=== PATIENT | female | born 1975 | race Caucasian/White ===

== ENCOUNTER → 2017-04-16 | Outpatient (CLI) | payer OTHER ==
[~2017-04-16] MED LIST: ALBU90OI61; CEPH500 PO; FAMO20 PO; FLUC200 PO; FLUSAL5005 IH; MONT10T PO; OMEP10ER PO; ONDA8 PO; PANT20 PO; RXERYTOPTH OP; SPIR25 PO; SUCR1 PO; SULTRIDS PO; THYR60 PO; THYROID PO; VITAMIN D3 PO; [UNRECOGNIZED DRUG - OTHER]
[2017-04-18 03:15] LABS: Source VAGINAL
== END ==
LOC: LAB 11:04
PROVIDERS: Nurse Practitioner Family
DX: Z01.419 Encounter for gynecological examination (general) (routine) without abnormal findings (principal)
CPT/HCPCS: G0145

== ENCOUNTER 2018-10-15 20:19 | Emergency (ER) | payer BC ==
[~2018-10-15] VITALS: Ht 167.6 cm; Wt 72.6 kg
[~2018-10-15 20:19] MED LIST changes: -ALBU90OI61; +ALBU90OI61 INH
[2018-10-15 20:56] LABS: BASOPHILS ABSOLUTE AUTO 0.05 K/mm3 (0.00-0.23); BASOPHILS PERCENT AUTO 1 % (0-2); EOSINOPHILS ABSOLUTE AUTO 0.14 K/mm3 (0.00-0.68); EOSINOPHILS PERCENT AUTO 2 % (0-6); Hematocrit 39.6 % (33.0-51.0); Hemoglobin 14.3 g/dL (11.5-16.0); IMMATURE GRAN ABSOLUTE AUTO 0.02 K/mm3 (0.00-0.10); IMMATURE GRAN PERCENT AUTO 0 % (0-1); LYMPHOCYTES ABSOLUTE AUTO 1.29 K/mm3 (0.84-5.20); LYMPHOCYTES PERCENT AUTO 15 % (21-46); MONOCYTES ABSOLUTE AUTO 0.41 K/mm3 (0.16-1.47); MONOCYTES PERCENT AUTO 5 % (4-13); Mean Corpuscular HGB 31.2 pg (26.0-34.0); Mean Corpuscular HGB Conc 36.1 g/dL (31.5-36.5); Mean Corpuscular Volume 86 fL (80-100); Mean Platelet Volume 9.3 fL (9.1-12.4); NEUTROPHILS ABSOLUTE AUTO 6.61 K/mm3 (1.96-9.15); NEUTROPHILS PERCENT AUTO 78 % (41-73); Platelet Count 236 K/mm3 (150-400); RDW Coefficient Variation 12.3 % (11.7-14.2); RDW Standard Deviation 38.6 fL (35.1-46.3); Red Blood Cell Count 4.59 M/mm3 (3.80-5.20); White Blood Cell Count 8.52 K/mm3 (4.00-11.30)
[2018-10-15 21:19] LABS: Alanine Aminotransfer (ALT/SGP 68 U/L (12-78); Albumin, Blood 3.9 g/dL (3.4-5.0); Albumin/Globulin Ratio 1.2 (0.8-1.8); Alk Phos 83 U/L (50-136); Anion Gap 7 mmol/L (6-16); Aspartate Aminotrans (AST/SGOT 113 U/L (12-37); Bilirubin, Total 1.7 mg/dL (0.1-1.0); Blood Urea Nitrogen 16 mg/dL (8-24); Bun/Creatinine Ratio 29.8 (12.0-20.0); CO2, Blood 27 mmol/L (21-32); Calcium, Blood 8.8 mg/dL (8.5-10.1); Chloride, Blood 109 mmol/L (98-108); Creatinine, Blood 0.54 mg/dL (0.40-1.00); Globulin, Blood 3.2 g/dL (2.2-4.0); Glomerular Filtration Rate >60 (60-); Glucose, Blood 94 mg/dL (70-99); Potassium, Blood 3.7 mmol/L (3.5-5.5); Sodium, Blood 143 mmol/L (136-145); Total Protein, Blood 7.1 g/dL (6.4-8.2); Troponin I <0.015 ng/mL (0.000-0.040)
[2018-10-16] MEDS ORDERED: MONTELUKAST SOD10 MG PO (00:01)
[2018-10-16] MEDS ORDERED: Cephalexin500 MG PO (00:01)
[2018-10-16] MEDS ORDERED: ARMOUR THYROID PO (00:01)
[2018-10-16] MEDS ORDERED: METPHE20 PO (00:03)
[2018-11-02] MEDS ORDERED: PROBIOTIC1 EAC1 PO (13:56)
[2018-11-02] MEDS ORDERED: VITAMIN D5000 UNI1 PO (13:56)
[2018-11-02] MEDS ORDERED: Hair, Skin & N1 EACH PO (13:57)
[2018-11-02] MEDS ORDERED: FLUT1DIS8 INH (13:59)
== END 2018-10-16 00:34 | disposition home or self-care (01) ==
LOC: ER 20:19
PROVIDERS: Physician Assistant
DX: K80.70 Calculus of gallbladder and bile duct without cholecystitis without obstruction (principal); E03.9 Hypothyroidism, unspecified; K21.9 Gastro-esophageal reflux disease without esophagitis; J45.909 Unspecified asthma, uncomplicated; Z88.8 Allergy status to other drugs, medicaments and biological substances; Z79.899 Other long term (current) drug therapy; Z79.51 Long term (current) use of inhaled steroids
CPT/HCPCS: 36415; 71046; 76705; 80053; 83690; 84484; 85025; 93005; 93010; 99284-25

== ENCOUNTER 2018-11-04 07:49 | Day surgery (SDC) | payer BC ==
[~2018-11-04] VITALS: Ht 167.6 cm; Wt 76.3 kg
[~2018-11-04 07:49] MED LIST changes: +ARMOUR THYROID PO; +Cephalexin500 MG PO; +FLUT1DIS8 INH; +Hair, Skin & N1 EACH PO; +METPHE20 PO; +MONTELUKAST SOD10 MG PO; +PROBIOTIC1 EAC1 PO; +VITAMIN D5000 UNI1 PO
[2018-11-04] MEDS ORDERED: ARMOUR THYROID (08:29)
[2018-11-04] MEDS ORDERED: THYR60 PO (08:29)
[2018-11-04] MEDS ORDERED: CEPH500 PO (08:29)
--- NOTE | 2018-11-04 09:31 | NUR ---
"DAY SURGERY RN | TO OR Patient up to bathroom prior to surgery. Patient given 2 mg versed by this RN. Unopened bottle received from Dr. Arevalo. See anethesia record for administration record."
--- NOTE | 2018-11-04 12:23 | NUR ---
N 1223- GILL DEGROOT RN TAKING OVER PT CARE
--- NOTE | 2018-11-04 13:35 | NUR ---
REPORT FROM [employer].
--- NOTE | 2018-11-04 13:45 | NUR ---
PT TO ROOM 228 FROM PACU. PT DROWSY BUT ANSWERS QUESTIONS APPROPRIATELY. VSS. PT C/O PAIN 5/10 TO ABD. PT WITH LAP SITES THAT ARE CLEAN AND DRY. ABD SOFT, HYPOACTIVE BS. NILA DRAIN NOTED TO RIGHT SIDE. 40ML ORANGE/CLEARISH LIQUID DRAINED FROM DRAIN.
[2018-11-04] MEDS ORDERED: THYROID PO (14:01)
[2018-11-04] MEDS ORDERED: MONT10T PO (14:01)
[2018-11-04] MEDS ORDERED: VITAMIN D PO (14:02)
[2018-11-04] MEDS ORDERED: Align4 MG PO (14:02)
[2018-11-04] MEDS ORDERED: THERA1 EACH PO (14:03)
[2018-11-04] MEDS ORDERED: FLUT1DIS8 INH (14:04)
[2018-11-04] MEDS ORDERED: ALBU2.5V5 INH (14:05)
[2018-11-04] MEDS ORDERED: METPHE20 PO (14:06)
--- NOTE | 2018-11-04 14:36 | NUR ---
PT MEDICATED WITH 2 NORCO PO. SALTINES PROVIDED.
--- NOTE | 2018-11-04 15:01 | NUR ---
VSS. PT STATES PAIN 6-08/19. PT FALLS ASLEEP EASILY.
--- NOTE | 2018-11-04 15:42 | NUR ---
PT MEDICATED WITH 25MCG FENTANYL FOR BREAKTHROUGH PAIN. PT DOZES OFF EASILY. FAMILY AT BEDSIDE. EXPLAINED PAIN MANAGEMENT PLAN WITH PT AND PT FAMILY. BOTH VERBALIZE UNDERSTANDING. PT DENIES NAUSEA. CALL LIGHT IN REACH.
--- NOTE | 2018-11-05 14:17 | NUR ---
ASSUMED CARE AT 1400. PT ASLEEP IN BED UPON ENTERING ROOM. A&O WITH PAIN MANAGED PER EMAR AND KPAD. ABD DRESSINGS 3X C/D/I. NILA DRAIN IN PLACE, DRAINING SEROSANGUINEOUS FLUID. FAMILY AT BEDSIDE AND CALL LIGHT WITH REACH
--- NOTE | 2018-11-05 18:53 | NUR ---
SHIFT SUMMMARY PT A&O T/O SHIFT WITH VSS. AMBULATES IND IN ROOM. REPORTS VOIDING WITHOUT DIFFICUTLY. DENIES PASSING FLATUS. ENCOURAGED AMULATION. PAIN MANAGED PER EMAR. PT UP IN SHOWER THIS AFTERNOON. LLQ DRESSING CHANGED. ABD LAP SITES 2X C/D/I. NO NEW DRAINAGE NOTED TODAY. NILA DRAIN IN PLACE AND DRAINING. FAMILY AT BEDSIDE.
--- NOTE | 2018-11-06 07:58 | NUR ---
POD 2 S/P LAP LILIA. PT VSS T/O NIGHT. PT REP BETTER PAIN CONTROL TONIGHT, ONOLY REQUIRING BREAKTHROUGH PAIN MEDS X1. DRESSINGS CDI, NILA PUTTING OUT SS DRNG. PT ISMA REG PO, NO C/O N/V, IS PASSING FLATUS. PT AMB INDEP IN HALLS, TOLL WELL. IN TO SEE PT THIS AM, PLAN TO S/C HOME W/NILA DRAIN. REPORT GIVEN TO DAY RN.
[2018-11-06] MEDS ORDERED: Percocet 7.5-31 EACH PO (09:38)
--- NOTE | 2018-11-06 10:05 | NUR ---
11/06/18 1005 Belkys Chan AUDITS, VERIFICATIONS.
--- NOTE | 2018-11-06 10:17 | NUR ---
1010 discharged to home with
[2018-11-06] MEDS ORDERED: Armour Thyroid15 MG PO (14:26)
[2018-11-06] MEDS ORDERED: ARMOUR THYROID PO (14:26)
== END 2018-11-06 10:10 | disposition home or self-care (01) ==
LOC: ORSCMMR 07:49 → ORD 11:15 → SURS 13:45 → ORSCMMR 11-06 10:10
PROVIDERS: Surgery
PROC: 0FD Hepatobiliary System and Pancreas, Extraction (ICD-10-PCS; principal; 2018-11-04 09:30)
PROC: BF031ZZ Plain Radiography of Gallbladder and Bile Ducts using Low Osmolar Contrast (ICD-10-PCS; principal; 2018-11-04 09:30)
PROC: 0FT44ZZ Resection of Gallbladder, Percutaneous Endoscopic Approach (ICD-10-PCS; principal; 2018-11-04 09:30)
DX: K80.11 Calculus of gallbladder with chronic cholecystitis with obstruction (principal); K74.0 Hepatic fibrosis; K21.9 Gastro-esophageal reflux disease without esophagitis; E03.9 Hypothyroidism, unspecified; J45.909 Unspecified asthma, uncomplicated; Z79.899 Other long term (current) drug therapy
CPT/HCPCS: 74300; 88304; 88307; 88313; A9270-GY; C1729; J0330; J0690; J1170; J2060; J2250; J2405; J2704; J2710; J2765; J3010; J7120

== ENCOUNTER 2018-11-06 12:20 | Observation (INO) | payer BC ==
[~2018-11-06] VITALS: Ht 167.6 cm; Wt 76.2 kg
[~2018-11-06 12:20] MED LIST changes: +ALBU2.5V5 INH; +ARMOUR THYROID; +Align4 MG PO; +Percocet 7.5-31 EACH PO; +THERA1 EACH PO; +VITAMIN D PO
[2018-11-06 13:21] LABS: BASOPHILS ABSOLUTE AUTO 0.05 K/mm3 (0.00-0.23); BASOPHILS PERCENT AUTO 1 % (0-2); EOSINOPHILS PERCENT AUTO 4 % (0-6); Hematocrit 37.4 % (33.0-51.0); Hemoglobin 13.4 g/dL (11.5-16.0); IMMATURE GRAN ABSOLUTE AUTO 0.01 K/mm3 (0.00-0.10); IMMATURE GRAN PERCENT AUTO 0 % (0-1); LYMPHOCYTES ABSOLUTE AUTO 1.33 K/mm3 (0.84-5.20); LYMPHOCYTES PERCENT AUTO 24 % (21-46); MONOCYTES ABSOLUTE AUTO 0.32 K/mm3 (0.16-1.47); MONOCYTES PERCENT AUTO 6 % (4-13); Mean Corpuscular HGB 30.9 pg (26.0-34.0); Mean Corpuscular HGB Conc 35.8 g/dL (31.5-36.5); Mean Corpuscular Volume 86 fL (80-100); Mean Platelet Volume 8.7 fL (9.1-12.4); NEUTROPHILS ABSOLUTE AUTO 3.71 K/mm3 (1.96-9.15); NEUTROPHILS PERCENT AUTO 66 % (41-73); Platelet Count 246 K/mm3 (150-400); RDW Coefficient Variation 11.9 % (11.7-14.2); RDW Standard Deviation 37.8 fL (35.1-46.3); Red Blood Cell Count 4.33 M/mm3 (3.80-5.20); White Blood Cell Count 5.62 K/mm3 (4.00-11.30)
[2018-11-06 13:56] LABS: Alanine Aminotransfer (ALT/SGP 36 U/L (12-78); Albumin, Blood 3.7 g/dL (3.4-5.0); Albumin/Globulin Ratio 1.2 (0.8-1.8); Alk Phos 68 U/L (50-136); Anion Gap 7 mmol/L (6-16); Aspartate Aminotrans (AST/SGOT 25 U/L (12-37); Bilirubin, Total 1.6 mg/dL (0.1-1.0); Blood Urea Nitrogen 6 mg/dL (8-24); Bun/Creatinine Ratio 10.5 (12.0-20.0); CO2, Blood 26 mmol/L (21-32); Calcium, Blood 8.9 mg/dL (8.5-10.1); Chloride, Blood 106 mmol/L (98-108); Creatinine, Blood 0.57 mg/dL (0.40-1.00); Glomerular Filtration Rate >60 (60-); Glucose, Blood 101 mg/dL (70-99); Potassium, Blood 3.2 mmol/L (3.5-5.5); Sodium, Blood 139 mmol/L (136-145); Total Protein, Blood 6.7 g/dL (6.4-8.2)
[2018-11-06] MEDS ORDERED: ARMOUR THYROID PO (14:26)
[2018-11-06] MEDS ORDERED: Armour Thyroid15 MG PO (14:26)
--- NOTE | 2018-11-06 15:43 | NUR ---
dr alcantar here and removed devyn drain
--- NOTE | 2018-11-06 17:29 | NUR ---
SUMMARY PATIENT SLEEPING INTERMITTENTLY AND STATES PAIN IS CONTROLLED TO ACCEPTABLE LEVEL. PATIENTS AT BEDSIDE
[2018-11-06 21:00] LABS: Source, Urine Clean Catch
[2018-11-06 21:03] LABS: Bilirubin, Urine Neg (Neg); Blood, Urine Neg (Neg); Glucose Qualitative, Urine Neg (Neg); Ketones, Urine 1+ (Neg); Leukocyte Esterase, Urine Neg (Neg); Nitrite, Urine Neg (Neg); Protein, Urine Neg (Neg); Specific Gravity, Urine 1.015 (1.003-1.022); Urobilinogen, Urine NORM (Normal)
[2018-11-06 21:08] LABS: Appearance, Urine Clear (Clear); Color, Urine Yellow (P-Yellow)
--- NOTE | 2018-11-07 06:40 | NUR ---
PATIENT HAS COMPLAINED OF PAIN IN HER UPPER ABDOMEN 6-7/10 THROUGHOUT THE NIGHT. WOUND DRESSINGS ARE CLEAN AND CLEAR. devyn DRAIN SITE IS CLEAR. SHE HAS BEEN UP IN THE ROOM INDEPENDENTLY WITHOUT ISSUES. tHE GOAL WOULD BE FOR HER TO HAVE ENOUGH PAIN CONTROL TODAY THAT SHE CAN GO HOME.
== END 2018-11-07 12:47 | disposition home or self-care (01) ==
LOC: ER 12:20 → SURS 12:21
PROVIDERS: Physician Assistant; ADMIT Surgery
DX: G89.18 Other acute postprocedural pain (principal); R10.31 Right lower quadrant pain; R10.11 Right upper quadrant pain; N20.0 Calculus of kidney; J45.909 Unspecified asthma, uncomplicated; K21.9 Gastro-esophageal reflux disease without esophagitis; F41.9 Anxiety disorder, unspecified; F32.9 Major depressive disorder, single episode, unspecified; Z90.49 Acquired absence of other specified parts of digestive tract; Z88.8 Allergy status to other drugs, medicaments and biological substances; Z79.899 Other long term (current) drug therapy; Z79.51 Long term (current) use of inhaled steroids
CPT/HCPCS: 36415; 74176; 80053; 81003; 83690; 85025; 96361; 96374; 96375; 96376; 99284-25; A9270-GY; G0378; J1170; J2405; J7030

== ENCOUNTER 2023-03-27 08:19 | Day surgery (SDC) | payer BC ==
[~2023-03-27] VITALS: Ht 167.6 cm; Wt 69.9 kg
[~2023-03-27 08:19] MED LIST changes: -ALBU2.5V5 INH; +ALBU90OI; +ALDACTONE100 M1 PO; +Armour Thyroid15 MG PO; +Budeprion Xl300 MG PO; +LEVOTHYROXINE175 MC9 PO; +LORA10ER PO; +LYSINE PO; +Lactated Ringer's 1,000 ML IV ONE; +[UNRECOGNIZED DRUG - OTHER] PO; +propofoL 50 ML IV ONE
[2023-03-27] MEDS ORDERED: ATEN25 (08:38)
[2023-03-27] MEDS ORDERED: Prozac20 MG (08:40)
[2023-03-27] MEDS ORDERED: PROBIOTIC1 EA14 (08:40)
[2023-03-27] MEDS ORDERED: METF500 (08:41)
[2023-03-27] MEDS ORDERED: ONDA4 (08:41)
[2023-03-27] MEDS ORDERED: Lactated Ringer's 1,000 ML IV ONE (09:05)
[2023-03-27] MEDS ORDERED: Midazolam HCL 1 MG/ML 5MLVIAL ONE (09:07)
[2023-03-27] MEDS ORDERED: propofoL 50 ML IV ONE (09:38)
[2023-03-27 10:28] VITALS: BP 116/73
== END 2023-03-27 10:30 | disposition home or self-care (01) ==
LOC: ORSCSDS 08:19
PROVIDERS: Internal Medicine Gastroenterology
PROC: 0DB98ZX Excision of Duodenum, Via Natural or Artificial Opening Endoscopic, Diagnostic (ICD-10-PCS; principal; 2023-03-27 09:30)
PROC: 0DBL8ZX Excision of Transverse Colon, Via Natural or Artificial Opening Endoscopic, Diagnostic (ICD-10-PCS; principal; 2023-03-27 09:30)
PROC: 0DBK8ZX Excision of Ascending Colon, Via Natural or Artificial Opening Endoscopic, Diagnostic (ICD-10-PCS; principal; 2023-03-27 09:30)
PROC: 0DBE8ZX Excision of Large Intestine, Via Natural or Artificial Opening Endoscopic, Diagnostic (ICD-10-PCS; principal; 2023-03-27 09:30)
PROC: 0DB78ZX Excision of Stomach, Pylorus, Via Natural or Artificial Opening Endoscopic, Diagnostic (ICD-10-PCS; principal; 2023-03-27 09:30)
DX: R19.7 Diarrhea, unspecified (principal); D12.2 Benign neoplasm of ascending colon; D12.3 Benign neoplasm of transverse colon; K21.9 Gastro-esophageal reflux disease without esophagitis; K29.70 Gastritis, unspecified, without bleeding; E03.9 Hypothyroidism, unspecified; J45.909 Unspecified asthma, uncomplicated; Z86.16 Personal history of COVID-19; F41.9 Anxiety disorder, unspecified; F32.A Depression, unspecified; Z79.899 Other long term (current) drug therapy
CPT/HCPCS: 88305; 88342; J2250; J2704; J7120